=== PATIENT | male | born 2000 | race Hispanic/Latino ===

== ENCOUNTER 2018-11-12 00:19 | Emergency (ER) | payer OTHER ==
[~2018-11-12] VITALS: Ht 167.6 cm; Wt 65.9 kg
[2018-11-12] MEDS ORDERED: ONDANSETRON 4 MG ORAL DISINTEGRATING TAB (Q0162 PER 1MG) PO ONE (01:15)
[2018-11-12] MEDS ORDERED: AMOX875T PO (01:42)
[2018-11-12] MEDS ORDERED: ONDA4TAB6 PO (01:42)
[2018-11-12] MEDS ORDERED: AMOXICILLIN 500 MG CAP PO ONE (01:45)
[2018-11-12 01:59] VITALS: BP 132/72
== END 2018-11-12 02:03 | disposition home or self-care (01) ==
LOC: M ED 00:19
DX: R11.2 Nausea with vomiting, unspecified (principal); R19.7 Diarrhea, unspecified; J01.90 Acute sinusitis, unspecified; Z72.0 Tobacco use
CPT/HCPCS: 99283; Q0162

== ENCOUNTER 2018-12-17 14:51 | Emergency (ER) | payer OTHER ==
[~2018-12-17] VITALS: Ht 167.6 cm; Wt 65.9 kg
[~2018-12-17 14:51] MED LIST: AMOX875T PO; ONDA4TAB6 PO
[2018-12-17] MEDS ORDERED: advil (15:13)
[2018-12-17 19:13] VITALS: BP 133/80
== END 2018-12-17 19:07 | disposition home or self-care (01) ==
LOC: M ED 14:51
DX: S06.0X0A Concussion without loss of consciousness, initial encounter (principal); S00.212A Abrasion of left eyelid and periocular area, initial encounter; W00.0XXA Fall on same level due to ice and snow, initial encounter; Y92.410 Unspecified street and highway as the place of occurrence of the external cause